=== PATIENT | male | born 1985 | race Native Hawaiian/Other Pacific Islander ===

== ENCOUNTER 2020-03-24 14:50 | Emergency (ER) | payer SELFPAY ==
[2020-03-24] MEDS ORDERED: IBUPROFEN 600 MG TAB PO ONE ×2 (15:05→15:06)
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
--- NOTE | 2020-03-24 15:48 | XRay Report ---
XR elbow 3+V RT INDICATION / CLINICAL INFORMATION: PAIN AND SWELLING. COMPARISON: None available. FINDINGS: No acute fracture. Normal alignment. Joint spaces are preserved. No destructive osseous lesion or s uspicious periosteal reaction. Impression: 1.No acute fracture. Signer Name: Oscar John MD Signed: 03/24/2020 3:44 PM Workstation Name: [id number]
[2020-03-24] MEDS ORDERED: HYDROcodone/ACETAMINOPHEN 7.5-325MG TAB PO ONE (19:36)
[2020-03-24] MEDS ORDERED: ONDANSETRON 4 MG ODT TAB PO ONE (19:36)
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
[2020-03-24 21:52] VITALS: BP 124/60
== END 2020-03-24 20:45 | disposition home or self-care (01) ==
LOC: ED 14:50
DX: S53.401A Unspecified sprain of right elbow, initial encounter (principal); S50.11XA Contusion of right forearm, initial encounter; Z79.899 Other long term (current) drug therapy; Z90.49 Acquired absence of other specified parts of digestive tract; X58.XXXA Exposure to other specified factors, initial encounter; Y93.89 Activity, other specified; Y92.239 Unspecified place in hospital as the place of occurrence of the external cause; Y99.8 Other external cause status
CPT/HCPCS: Q0162